=== PATIENT | female | born 1945 | race Two or more races ===

== ENCOUNTER 2020-09-08 14:19 | Emergency (ER) | payer OTHER ==
[~2020-09-08] VITALS: Ht 154.9 cm; Wt 59.9 kg
[~2020-09-08 14:19] MED LIST: NABUMETONE750 MG PO; SEPTRA DS TABLE1 TAB PO; VISTARIL50 MG PO
[2020-09-08] MEDS ORDERED: PROLIA60 MG/1 ML (14:53)
[2020-09-08] MEDS ORDERED: TOPROL XL25 M1 (14:54)
[2020-09-08] MEDS ORDERED: ANASTROZOLE1 MG (14:54)
[2020-09-08] MEDS ORDERED: [UNRECOGNIZED DRUG - CODE] (14:54)
== END 2020-09-08 20:07 | disposition home or self-care (01) ==
LOC: ER 14:19
DX: L03.011 Cellulitis of right finger (principal)